=== PATIENT | female | born 1965 | race Caucasian/White ===

== ENCOUNTER 2018-04-22 10:12 | Emergency (ER) | payer BC ==
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
--- NOTE | 2018-04-22 11:32 | RADIOLOGY REPORT (SQ) ---
EXAM DESCRIPTION: FOOT RIGHT COMPLETE COMPLETED DATE/TIME: 04/22/2018 11:18 am REASON FOR STUDY: right foot pain COMPARISON: None. NUMBER OF VIEWS: Three views. TECHNIQUE: AP, lateral and oblique radiographic images acquired of the right foot. LIMITATIONS: None. FINDINGS: MINERALIZATION: Normal. BONES: No acute fracture or dislocation. No worrisome bone lesions. Minimal bony spurring at the ta lonavicular joint. Small osteophyte at the Achilles tendon attachment to the calcaneus. JOINTS: No malalignment SOFT TISSUES: Mild dorsal forefoot soft tissue swelling. No radiopaque foreign body or soft tissue g as OTHER: No other significant finding. IMPRESSION: Dorsal soft tissue swelling. No fracture TECHNICAL DOCUMENTATION: JOB ID: [id number] [employer]- All Rights Reserved Reading location - IP/workstation name: [email or web address]
[2018-04-22 11:50] VITALS: BP 128/78
== END 2018-04-22 11:45 | disposition home or self-care (01) ==
LOC: ER 10:12
DX: M79.671 Pain in right foot (principal); M25.571 Pain in right ankle and joints of right foot; W23.0XXA Caught, crushed, jammed, or pinched between moving objects, initial encounter
CPT/HCPCS: 99283; 73610; 73630; L1902